=== PATIENT | female | born 1965 | race Two or more races ===

== ENCOUNTER 2018-02-15 16:11 | Outpatient (CLI) | payer OTHER | END 2018-02-15 16:19 | disposition home or self-care (01) | LOC: RAD 16:11 | DX: S50.01XA Contusion of right elbow, initial encounter (principal) ==

== ENCOUNTER 2018-02-28 09:06 | Outpatient (CLI) | payer OTHER | END 2018-02-28 09:15 | disposition home or self-care (01) | LOC: RAD 501 09:06 | DX: S50.01XA Contusion of right elbow, initial encounter (principal) ==

== ENCOUNTER 2018-04-03 13:23 | Outpatient (CLI) | payer OTHER | END 2018-04-03 13:29 | disposition home or self-care (01) | LOC: RAD 501 13:23 | DX: M25.521 Pain in right elbow (principal) ==

== ENCOUNTER 2019-10-20 12:52 | Outpatient (CLI) | payer OTHER ==
[2019-10-20] MEDS ORDERED: CYMBALTA60 MG PO (15:39)
[2019-10-20] MEDS ORDERED: HYDROXYCHLOROQ200 MG PO (15:39)
[2019-10-20] MEDS ORDERED: AMITRIPTYLINE H50 MG PO (15:40)
[2019-10-20] MEDS ORDERED: HORIZANT300 MG PO (15:40)
[2019-10-20] MEDS ORDERED: CELLCEPT500 MG PO (15:41)
[2019-10-20] MEDS ORDERED: CLONAZEPAM0.5 M1 PO (15:41)
== END 2019-10-20 14:56 ==
LOC: LAB 12:52
DX: D64.89 Other specified anemias (principal); E88.89 Other specified metabolic disorders; D68.8 Other specified coagulation defects; N39.0 Urinary tract infection, site not specified; Z22.322 Carrier or suspected carrier of Methicillin resistant Staphylococcus aureus; Z76.89 Persons encountering health services in other specified circumstances; I10 Essential (primary) hypertension; I49.8 Other specified cardiac arrhythmias

== ENCOUNTER → 2019-10-20 | Outpatient (CLI) | payer OTHER ==
[~2019-10-20] MED LIST: AMITRIPTYLINE H50 MG PO; CELLCEPT500 MG PO; CLONAZEPAM0.5 M1 PO; CYMBALTA60 MG PO; HORIZANT300 MG PO; HYDROXYCHLOROQ200 MG PO
== END | disposition home or self-care (01) ==
LOC: RAD 10:54
DX: M25.562 Pain in left knee (principal)

== ENCOUNTER 2019-10-24 06:00 | Day surgery (SDC) | payer OTHER ==
[~2019-10-24 06:00] MED LIST changes: +CLONAZEPAM0.5 MG PO; +GABAPENTIN100 M2 PO; +PLAQUENIL PO
== END 2019-10-24 16:20 | disposition home or self-care (01) ==
LOC: CIR.AMB 06:00
DX: S82.032A Displaced transverse fracture of left patella, initial encounter for closed fracture (principal); M71.22 Synovial cyst of popliteal space [Baker], left knee

== ENCOUNTER 2024-04-21 14:51 | Outpatient (CLI) | payer OTHER | END 2024-04-21 14:59 | disposition home or self-care (01) | LOC: SONOGRAMA 14:51 | PROVIDERS: ATTEND Pathology Anatomic Pathology & Clinical Pathology | DX: D34 Benign neoplasm of thyroid gland (principal); E07.89 Other specified disorders of thyroid; E04.2 Nontoxic multinodular goiter ==

== ENCOUNTER 2024-12-24 10:18 | Outpatient (CLI) | payer OTHER | END 2024-12-24 10:28 | disposition home or self-care (01) | LOC: RAD 10:18 | PROVIDERS: ATTEND Orthopaedic Surgery | DX: M25.562 Pain in left knee (principal); M25.561 Pain in right knee; M25.511 Pain in right shoulder ==

== ENCOUNTER 2025-02-18 10:19 | Outpatient (CLI) | payer OTHER | END 2025-02-18 10:22 | disposition home or self-care (01) | LOC: SONOGRAMA 10:19 | PROVIDERS: ATTEND Orthopaedic Surgery | DX: M75.41 Impingement syndrome of right shoulder (principal) ==

== ENCOUNTER 2025-02-21 10:01 | Outpatient (CLI) | payer OTHER ==
[2025-02-21 11:49] LABS: ALBUMIN 3.1 gm/dL (3.4-5.0); BILIRUBIN TOTAL 0.35 mg/dL (0.3-1.2); CALCIUM 8.9 mg/dL (8.5-10.1); CREATININE SERUM 0.95 mg/dL (0.55-1.02); GFR 60.21; GLOBULINA 3.5 G/DL (2.4-3.5); MAGNESIUM 2.1 mg/dL (1.8-2.4); PHOSPHOROUS 3.1 mg/dL (2.5-4.9); POTASSIUM 4.27 mEq/L (3.5-5.1); T4 TOTAL 13.29 UG/DL (4.8-13.9); TOTAL PROTEIN 6.6 gm/dL (6.4-8.2); TSH 1.14 uIU/mL (0.358-3.74)
[2025-02-23 10:48] LABS: T3 TOTAL 1.19 ng/ml (0.846-2.02); VITAMIN D3 25 HYDROXY 28.41 ng/ml (30-120)
[2025-02-24 13:12] LABS: CALCIUM IONIZED 4.9 mg/dL (4.5-5.6)
== END 2025-02-21 10:12 | disposition home or self-care (01) ==
LOC: LAB 10:01
PROVIDERS: ATTEND Orthopaedic Surgery
DX: E55.9 Vitamin D deficiency, unspecified (principal); M85.9 Disorder of bone density and structure, unspecified; E56.1 Deficiency of vitamin K; E21.3 Hyperparathyroidism, unspecified; E88.89 Other specified metabolic disorders; M81.8 Other osteoporosis without current pathological fracture; E03.9 Hypothyroidism, unspecified